=== PATIENT | female | born 1985 | race Caucasian/White ===

== ENCOUNTER 2016-06-22 15:51 | Emergency (ER) | payer SELFPAY ==
[~2016-06-22] VITALS: Ht 157.5 cm; Wt 52.3 kg
[~2016-06-22 15:51] MED LIST: ALPR1TAB7 PO; GABA-533 PO
[2016-06-22] MEDS ORDERED: KETOROLAC TROMETHAMINE 60 MG/2 ML VIAL IM ONE (17:00)
[2016-06-22 17:11] LABS: INFLUENZA TYPE B NEGATIVE FOR TYPE B (NEGATIVE)
[2016-06-22] MEDS ORDERED: HYDROCODONE/ACETAMINOPHEN 5-325 MG TABLET PO ONE (17:45)
[2016-06-22 18:05] VITALS: BP 110/76
== END 2016-06-22 18:32 | disposition home or self-care (01) ==
LOC: EMS 15:53
DX: S33.5XXA Sprain of ligaments of lumbar spine, initial encounter (principal); J06.9 Acute upper respiratory infection, unspecified; F17.210 Nicotine dependence, cigarettes, uncomplicated; Z88.0 Allergy status to penicillin; Z88.1 Allergy status to other antibiotic agents; X58.XXXA Exposure to other specified factors, initial encounter; Y93.89 Activity, other specified; Y92.89 Other specified places as the place of occurrence of the external cause; Y99.8 Other external cause status
CPT/HCPCS: 71010; 81002; 87804; 96372; 99285; J1885

== ENCOUNTER 2016-06-25 23:43 | Emergency (ER) | payer MEDICAID ==
[~2016-06-25] VITALS: Ht 157.5 cm; Wt 52.3 kg
[2016-06-26 02:15] VITALS: BP 120/78
[2016-06-26] MEDS ORDERED: HYDROCODONE/ACETAMINOPHEN 5-325 MG TABLET PO ONE (02:15)
[2016-06-26] MEDS ORDERED: GENTAMICIN SULFATE 0.3% OPHTHALMIC SOLUTION 5 ML OU ONE (02:15)
[2016-06-26] MEDS ORDERED: CEPHALEXIN MONOHYDRATE 500 MG CAPSULE PO ONE (02:15)
== END 2016-06-26 02:16 | disposition home or self-care (01) ==
LOC: EMS 23:44
DX: H10.9 Unspecified conjunctivitis (principal); J40 Bronchitis, not specified as acute or chronic; F17.210 Nicotine dependence, cigarettes, uncomplicated; Z88.1 Allergy status to other antibiotic agents
CPT/HCPCS: 99284; 99406

== ENCOUNTER 2018-05-24 22:57 | Emergency (ER) | payer MEDICAID, OTHER ==
[~2018-05-24] VITALS: Ht 157.5 cm; Wt 68.2 kg
[~2018-05-24 22:57] MED LIST changes: -ALPR1TAB7 PO
[2018-05-24 23:56] LABS: BASOPHILS % (AUTO) 0.7 % (0.0-2.0); EOSINOPHILS % (AUTO) 2.4 % (1.0-6.0); HEMATOCRIT 42.7 % (36-46); LYMPHOCYTES # (AUTO) 2.6 K/uL (1.0-4.8); LYMPHOCYTES % (AUTO) 52.4 % (22.0-44.0); MEAN CORPUSCULAR HEMOGLOBIN 32.5 pg (26.0-34.0); MEAN CORPUSCULAR HGB CONC 35.1 G/dL (31.0-37.0); MEAN CORPUSCULAR VOLUME 93 fL (80-100); MONOCYTES # (AUTO) 0.8 K/uL (0.1-1.0); MONOCYTES % (AUTO) 16.9 % (2.0-9.0); NEUTROPHILS # (AUTO) 1.4 K/uL (1.8-7.7); NEUTROPHILS % (AUTO) 27.6 % (40.0-70.0); PLATELET COUNT (AUTO) 195 K/uL (150-450); RED BLOOD CELL COUNT(AUTO) 4.61 MIL/uL (4.00-5.20); RED CELL DISTRIBUTION WIDTH 15.3 % (11.5-14.5)
[2018-05-25] MEDS ORDERED: ONDANSETRON HCL 4 MG/2 ML VIAL IVP ONE
[2018-05-25] MEDS ORDERED: SODIUM CHLORIDE 0.9% 1,000 ML IV ONE
[2018-05-25 00:04] LABS: ANION GAP 7 mmol/L (8-16); CALCIUM, TOTAL 8.2 mg/dL (8.8-10.5); CARBON DIOXIDE 28 mmol/L (22-29); CHLORIDE 109 mmol/L (98-107); CREATININE 0.69 mg/dL (0.60-1.30); GLOMERULAR FILTR. RATE CALC > 60 mL/min (>60); GLUCOSE,RANDOM 104 mg/dL (70-110); POTASSIUM 3.1 mmol/L (3.5-5.1); SODIUM SERUM 144 mmol/L (136-145); UREA NITROGEN, BLOOD 7 mg/dL (7-18)
[2018-05-25 00:07] LABS: AMPHET/METH SCREEN,URINE NEGATIVE (NEGATIVE); BARBITURATE SCREEN, URINE NEGATIVE (NEGATIVE); BENZODIAZEPINES SCREEN,URINE NEGATIVE (NEGATIVE); CANNABINOID SCREEN,URINE NEGATIVE (NEGATIVE); COCAINE SCREEN,URINE NEGATIVE (NEGATIVE); METHADONE SCREEN, URINE NEGATIVE (NEGATIVE); OPIATE SCREEN,URINE NEGATIVE (NEGATIVE)
[2018-05-25 00:21] LABS: PHENCYCLIDINE SCREEN,URINE NEGATIVE (NEGATIVE)
[2018-05-25 00:25] LABS: ALANINE AMINOTRANSFERASE 90 U/L (12-78); ALBUMIN 3.7 g/dL (3.4-5.0); ALKALINE PHOSPHATASE 93 U/L (46-116); ASPARTATE AMINOTRANSFERASE 92 U/L (15-37); BILIRUBIN,TOTAL 0.3 mg/dL (0.1-1.0); HCG,QUANTITATIVE < 1 mIU/mL (0-6); LIPASE 294 U/L (73-393); TOTAL PROTEIN, SERUM 7.5 g/dL (6.4-8.2)
[2018-05-25] MEDS ORDERED: POTASSIUM CHLORIDE 20 MEQ ER TABLET PO ONE (00:45)
[2018-05-25 01:36] LABS: APPEARANCE,URINE CLEAR (CLEAR); BILIRUBIN,URINE NEGATIVE (NEGATIVE); GLUCOSE, URINE (UA) NEGATIVE (NEGATIVE); KETONES,URINE NEGATIVE (NEGATIVE); LEUKOCYTE ESTERASE ,URINE NEGATIVE (NEGATIVE); NITRATE,URINE NEGATIVE (NEGATIVE); OCCULT BLOOD,URINE NEGATIVE (NEGATIVE); PROTEIN,URINE NEGATIVE (NEGATIVE); UROBILINOGEN,URINE 0.2 mg/dL (<=1.0)
[2018-05-25 01:58] VITALS: BP 134/88
== END 2018-05-25 02:00 | disposition home or self-care (01) ==
LOC: EMS 22:59
DX: K52.9 Noninfective gastroenteritis and colitis, unspecified (principal); A08.4 Viral intestinal infection, unspecified; F10.129 Alcohol abuse with intoxication, unspecified; F41.9 Anxiety disorder, unspecified; F32.9 Major depressive disorder, single episode, unspecified; F17.210 Nicotine dependence, cigarettes, uncomplicated; Y90.8 Blood alcohol level of 240 mg/100 ml or more; Z88.1 Allergy status to other antibiotic agents; Z79.899 Other long term (current) drug therapy
CPT/HCPCS: 36415; 80053; 80307; 81003; 83690; 84702; 85025; 96361; 96374; 99283; G0480; J2405; J7030